=== PATIENT | female | born 1955 | race Caucasian/White ===

== ENCOUNTER 2016-07-24 18:11 | Inpatient (IN) | payer OTHER ==
[~2016-07-24] VITALS: Ht 162.6 cm; Wt 52.2 kg
--- NOTE | ~2016-07-24 | EKG ---
[address] [place] [address] ELECTROCARDIOGRAM REPORT Name: JEANNETTE DIAL Room #: 455-P ADM IN M.R.#: [id number] Admission: 07/24/16 Attend Phys: Gunnar Dc MD Discharge: Date of : 51 Report #: [id number] THIS REPORT FOR: //name// [facility] Test Date: 2016-07-24 Test Time: 21:50:47 Pat Name: JEANNETTE DIAL Department: Room: 455 P Gender: F Head Bookkeeper: Alee BAUTISTA : 1955 Requested By: Jannie Gan Order Number: [id number] MD: Devon Valente Measurements Intervals [place] Rate: 91 P: 76 [place]: 150 QRS: -41 QRSD: 93 T: 64 QT: 380 QTc: 468 Interpretive Statements Sinus rhythm Left axis deviation No previous ECG available for comparison Electronically Signed On 07-25-2016 7:41:53 CDT by Devon Valente [email or web address] <ELECTRONICALLY SIGNED> By: Devon Valente MD, [facility] 07/25/16 0741 2150 2150 Devon Valente MD, FACC /EPI
--- NOTE | ~2016-07-24 | HC ---
[facility] [place] [address] CONSULTATION Name: JEANNETTE DIAL Room #: 455-P [facility] IN M.R.#: [id number] Admission: 07/24/16 Attend Phys: Jaron Alegre DO Discharge: 07/28/16 Date of : 51 Report #: [id number] THIS REPORT FOR: //name// CC: Gunnar MCMANUS DATE OF SERVICE: 07/25/2016 REFERRING PROVIDER: Gunnar Dc M.D. REASON FOR CONSULTATION: COPD exacerbation. CHIEF COMPLAINT: Shortness of breath. HISTORY OF PRESENT ILLNESS: Our group was asked to see the patient in consultation while hospitalized at [facility], very pleasant 61-year-old woman with a past pulmonary history significant for ongoing tobacco use and COPD. She was previously followed by pulmonary at her home town in [place] until they moved, been on Advair twice daily and had previously been on an anticholinergic agent, but discontinued due to expense. Typically has some limitations in activity due to dyspnea. Unfortunately, has some ongoing tobacco use. Has been trying to move to the [place] area to be closer to family, recently traveled here, but yesterday had some increasing shortness of breath. No significant cough or sputum production. The patient has been using her nebulizer very frequently without relief. EMS was called twice yesterday. Initially, she improved with nebulizer treatment and felt she did not need to come to the hospital, but reactivated again to come to the emergency department for evaluation, was placed on BiPAP in the emergency department yesterday afternoon for her respiratory distress, has been off of BiPAP overnight and has noted an improvement just with aerosol treatments and systemic steroids. Again, no significant cough or sputum production or fever. ALLERGIES: None known. PAST MEDICAL HISTORY: 1. COPD, severity not quantified. Has not required chronic long-term oxygen therapy or systemic steroids, has been admitted on 2 other occasions, but not within the last year for similar problems. 2. Hypertension. OUTPATIENT MEDICATIONS: Include: 1. Advair 115/21 two puffs twice daily. 2. Diltiazem 360 mg daily. 3. Aspirin 81 mg daily. 4. DuoNeb q.i.d. p.r.n. 5. Albuterol inhaler p.r.n. [address] [address] CONSULTATION Name: JEANNETTE DIAL Room #: [address] [place] [address] IN M.R.#: [id number] Admission: 07/24/16 Attend Phys: Jaron Alegre DO Discharge: 07/28/16 Date of : 51 Report #: [id number] 6. [place] p.r.n. 7. Vitamin D 1000 units twice daily. 8. Prozac 40 mg daily. 9. Metoprolol 25 mg daily. 10. Adderall. SOCIAL HISTORY: The patient resides in [place], but is planning to move to this area to be with family, ongoing tobacco use of slightly less than 1 pack per day. No significant alcohol consumption. FAMILY HISTORY: Negative for any significant pulmonary disease. REVIEW OF SYSTEMS: CONSTITUTIONAL: Denies any recent fevers, chills or sweats, no change in weight or appetite. ENT: Denies any upper respiratory congestion, rhinorrhea, dysphagia or dizziness. CARDIOVASCULAR: No chest pains, palpitations or claudication symptoms. GASTROINTESTINAL: No nausea, vomiting, diarrhea, constipation or abdominal pain. GENITOURINARY: No urinary frequency, dysuria or hematuria. INTEGUMENT: Denies any new rash. MUSCULOSKELETAL: Some chronic osteoarthritis, some prior foot surgeries and some chronic left ankle edema. PHYSICAL EXAMINATION: VITAL SIGNS: Afebrile, pulse 80s, respiratory rate 18, blood pressure 144/96, oxygen saturation 94% on 4 liters. GENERAL: This is a pleasant middle-aged woman, does not appear in any distress, speaking in full sentences. ENT: Clear oropharynx. Mallampati 1 airway. NECK: Supple. Jugular venous pressure not elevated, no thyromegaly or lymphadenopathy noted. LUNGS: Diminished with a prolonged expiratory phase and low pitched expiratory wheezes noted throughout. CARDIOVASCULAR: Heart was regular. No murmurs appreciated. ABDOMEN: Soft, nontender, no masses, no hepatosplenomegaly. EXTREMITIES: Revealed some minor left ankle edema, 2+ pulses noted in the periphery. INTEGUMENT: Without significant rash. LABORATORY DATA: CBC was within normal limits. Chemistry profile within normal limits with exception of a mildly elevated glucose of 165, albumin of 3.3. Arterial blood gas in the emergency department on BiPAP ____ yesterday revealed pH 7.38, pCO2 of 43, pO2 of 204, bicarbonate 24. Chest x-ray revealed clear lungs. [address] [address] CONSULTATION Name: JEANNETTE DIAL Room #: 455-P [facility] IN M.R.#: [id number] Admission: 07/24/16 Attend Phys: Jaron Alegre DO Discharge: 07/28/16 Date of : 51 Report #: [id number] IMPRESSION: 1. Chronic obstructive pulmonary disease with acute exacerbation: Overall, the patient will likely need change in long-term controlling agents, the patient will most definitely benefit from longacting anticholinergic agent such as Spiriva, Incruse, Tudorza, may benefit from a cost-effective standpoint and switching to a longacting anticholinergic and beta-agonist combination as opposed to . We consider making these changes as an outpatient, continue with DuoNebs while inpatient, systemic steroids. 2. Ongoing tobacco use: Discussed with patient need for smoking cessation, has done well with nicotine replacement therapy particularly nicotine gum in the past as well and to try nicotine patches at this time, we will institute while hospitalized. 3. Hypertension: ____ as outlined above. If not improving, consider further evaluation for pulmonary embolism given her recent travel. Thank you for requesting our suggestions. <ELECTRONICALLY SIGNED> By: Zheng Bella MD 07/31/16 1453 0923 1739 Zheng Bella MD /nt
[2016-07-24 18:11] VITALS: BP 167/96
[2016-07-24 19:01] LABS: ABG SAMPLE TYPE ARTERIAL; BE(vivo) -0.9 mmol/L (-2 to +3); HCO3 24.4 mmol/L (22.0-26.0); LACTATE 1.06 mmol/L (0.5-2.0); O2(CT) 20.3 mL/dL (15.0-23.0); O2Hb 98.3 % (92.0-98.0); PCO2 42.6 mmHg (35.0-45.0); PO2 204.1 mmHg (80.0-100.0); Pressure Support 6 cm H20; STICK SITE R.RADIAL; pH 7.376 (7.360-7.450); sO2 99.4 % (92.0-98.0); tCO2 25.7 mmol/L (24.0-30.0)
[2016-07-24] MEDS ORDERED: VITAMIN D1000 UNI1 PO (19:26)
[2016-07-24] MEDS ORDERED: INCRUSE ELLI62.5 MCG IH (19:26)
[2016-07-24] MEDS ORDERED: TOPROL XL25 MG PO (19:27)
[2016-07-24] MEDS ORDERED: PROZAC20 MG PO (19:27)
[2016-07-24] MEDS ORDERED: TUMS PO (19:28)
[2016-07-24] MEDS ORDERED: ADVAIR HFA115 MCG/21 INH (19:28)
[2016-07-24] MEDS ORDERED: ADDERALL XR 2020 MG PO (19:28)
[2016-07-24] MEDS ORDERED: PROAIR HFA8.5 GM INH (19:29)
[2016-07-24] MEDS ORDERED: DUONEB 2.5-0.5 M3 ML INH (19:30)
[2016-07-24] MEDS ORDERED: CARDIZEM CD240 MG PO (19:30)
[2016-07-24] MEDS ORDERED: ASPIR 8181 MG PO (19:30)
[2016-07-24 20:03] LABS: HEMATOCRIT 40.9 % (37.0-47.0); HEMOGLOBIN 13.9 gm/dL (12.0-15.0); MCH 31.1 pg (26.0-34.0); MCV 91.5 fL (80.0-100.0); PLATELET COUNT 269 thou/uL (150-400); RBC 4.46 mil/uL (4.20-5.00); RDW 13.5 % (10.5-14.5); WBC 9.8 thou/uL (4.0-11.0)
[2016-07-24 20:05] LABS: MANUAL DIFF YES
[2016-07-24 20:15] LABS: CALCIUM 8.9 mg/dL (8.5-10.1); CREATININE 0.5 mg/dL (0.6-1.0); POTASSIUM 4.4 mmol/L (3.5-5.1)
[2016-07-24 20:24] LABS: ABSOLUTE NEUTROPHILS 8.2 thou/uL (1.4-8.2); TOTAL CELL COUNT 100
[2016-07-24 20:25] VITALS: BP 160/85
[2016-07-24 21:00] VITALS: BP 142/80
[2016-07-24] MEDS ORDERED: HYDROCODONE-ACE15 ML PO (21:49)
[2016-07-24] MEDS ORDERED: NORCO 10-325 T1 EAC1 PO (21:53)
[2016-07-25] VITALS: BP 153/91
[2016-07-25 04:00] VITALS: BP 145/88
[2016-07-25 05:37] LABS: HEMATOCRIT 41.7 % (37.0-47.0); HEMOGLOBIN 13.7 gm/dL (12.0-15.0); MCH 30.6 pg (26.0-34.0); MCHC 32.9 g/dL (28.0-37.0); MCV 92.9 fL (80.0-100.0); RBC 4.49 mil/uL (4.20-5.00); RDW 13.6 % (10.5-14.5); WBC 5.4 thou/uL (4.0-11.0)
[2016-07-25 06:02] LABS: ALBUMIN 3.3 g/dL (3.4-5.0); CALCIUM 8.4 mg/dL (8.5-10.1); CREATININE 0.5 mg/dL (0.6-1.0); POTASSIUM 4.4 mmol/L (3.5-5.1); TOTAL BILIRUBIN 0.5 mg/dL (<0.1-1.0)
[2016-07-25 07:16] VITALS: BP 144/96
[2016-07-25 08:44] LABS: URINE BILIRUBIN NEGATIVE (Negative); URINE BLOOD 1+ (Negative); URINE COLOR YELLOW; URINE GLUCOSE-RANDOM* NEGATIVE (Negative); URINE KETONES 1+ (Negative); URINE NITRITE POSITIVE (Negative); URINE PROTEIN (DIPSTICK) TRACE (Negative); URINE SPECIFIC GRAVITY >= 1.030 (1.003-1.035); URINE UROBILINOGEN 0.2 E.U./dl (0.2-1.0)
[2016-07-25 08:53] LABS: BACTERIA >30 Many /HPF (None Seen); SQUAMOUS 0-3 Few /LPF (0-3)
[2016-07-25 08:54] LABS: CASTS None Seen /LPF (None Seen); CRYSTALS None Seen /LPF (None Seen); URINE RBC None Seen /HPF (0-2); URINE WBC 0-5 Rare /HPF (0-5)
[2016-07-25 12:49] VITALS: BP 146/83
[2016-07-25 16:00] VITALS: BP 150/98
[2016-07-25 19:55] VITALS: BP 145/83
[2016-07-26 04:45] VITALS: BP 125/75
[2016-07-26 06:58] LABS: HEMATOCRIT 38.9 % (37.0-47.0); HEMOGLOBIN 12.9 gm/dL (12.0-15.0); MCH 30.6 pg (26.0-34.0); MCHC 33.2 g/dL (28.0-37.0); MCV 92.3 fL (80.0-100.0); PLATELET COUNT 247 thou/uL (150-400); RBC 4.21 mil/uL (4.20-5.00); RDW 13.4 % (10.5-14.5); WBC 13.9 thou/uL (4.0-11.0)
[2016-07-26 07:04] LABS: MANUAL DIFF YES
[2016-07-26 07:08] LABS: CALCIUM 8.3 mg/dL (8.5-10.1); CREATININE 0.4 mg/dL (0.6-1.0); POTASSIUM 4.2 mmol/L (3.5-5.1)
[2016-07-26 07:37] VITALS: BP 159/83
[2016-07-26 08:19] LABS: ABSOLUTE NEUTROPHILS 13.2 thou/uL (1.4-8.2); TOTAL CELL COUNT 100
[2016-07-26 11:01] VITALS: BP 147/86
[2016-07-26 15:04] VITALS: BP 139/82
[2016-07-26 19:27] VITALS: BP 151/83
[2016-07-27 03:35] VITALS: BP 155/84
[2016-07-27 08:15] VITALS: BP 169/99
[2016-07-27 11:10] VITALS: BP 170/98
[2016-07-27 16:50] VITALS: BP 142/78
[2016-07-27 19:33] VITALS: BP 155/89
[2016-07-28 04:09] VITALS: BP 158/86
[2016-07-28 07:42] VITALS: BP 156/92
[2016-07-28 11:17] VITALS: BP 168/82
[2016-07-28 15:06] VITALS: BP 146/79
[2016-07-28] MEDS ORDERED: DUONEB 2.5-0.5 M3 ML INH (15:38)
[2016-07-28] MEDS ORDERED: KEFLEX250 M1 PO (15:38)
[2016-07-28] MEDS ORDERED: PROAIR HFA8.5 GM INH (15:38)
[2016-07-28] MEDS ORDERED: NORCO 10-325 T1 EAC1 PO (15:39)
[2016-07-28] MEDS ORDERED: MEDROL DOSPAK21 TA1 PO (15:39)
[2016-07-28] MEDS ORDERED: ADVAIR HFA115 MCG/21 INH (15:39)
[2016-07-28 16:11] VITALS: BP 146/79
== END 2016-07-28 17:30 | disposition home or self-care (01) | DRG 189 ==
LOC: ER 18:11 → 4W 19:50 → EROBS 19:50 → 4W 20:48
PROVIDERS: Emergency Medicine; Family Medicine; Nurse Practitioner Family
DX: J96.01 Acute respiratory failure with hypoxia (principal); J44.1 Chronic obstructive pulmonary disease with (acute) exacerbation; J98.01 Acute bronchospasm; I10 Essential (primary) hypertension; F17.210 Nicotine dependence, cigarettes, uncomplicated; R00.0 Tachycardia, unspecified; F32.9 Major depressive disorder, single episode, unspecified; F41.9 Anxiety disorder, unspecified; Z71.6 Tobacco abuse counseling; Z79.899 Other long term (current) drug therapy; Z79.82 Long term (current) use of aspirin
CPT/HCPCS: 10045

== ENCOUNTER 2018-04-21 06:55 | Inpatient (IN) | payer OTHER ==
[~2018-04-21] VITALS: Ht 162.6 cm; Wt 66.0 kg
[2018-04-21] VITALS (12 sets, daily range): BP systolic 99–134; BP diastolic 39–80
[~2018-04-21 06:55] MED LIST: ADDERALL XR 2020 MG PO; ADVAIR HFA115 MCG/21 INH; ASPIR 8181 MG PO; CARDIZEM CD240 MG PO; DUONEB 2.5-0.5 M3 ML INH; HYDROCODONE-ACE15 ML PO; INCRUSE ELLI62.5 MCG IH; KEFLEX250 M1 PO; MEDROL DOSPAK21 TA1 PO; NORCO 10-325 T1 EAC1 PO; PROAIR HFA8.5 GM INH; PROZAC20 MG PO; TOPROL XL25 MG PO; TUMS PO; VITAMIN D1000 UNI1 PO
[2018-04-21 07:08] LABS: HEMATOCRIT 46.5 % (37.0-47.0); HEMOGLOBIN 15.8 gm/dL (12.0-15.0); MCH 29.5 pg (26.0-34.0); MCV 86.8 fL (80.0-100.0); PLATELET COUNT 229 thou/uL (150-400); RBC 5.36 mil/uL (4.20-5.00); RDW 14.2 % (10.5-14.5); WBC 3.1 thou/uL (4.0-11.0)
[2018-04-21 07:12] LABS: HCO3 20.9 mmol/L (22.0-26.0); PO2 58.4 mmHg (80.0-100.0); pH 7.358 (7.360-7.450); sO2 89.4 % (92.0-98.0)
[2018-04-21 07:33] LABS: CALCIUM 8.1 mg/dL (8.5-10.1); POTASSIUM 3.8 mmol/L (3.5-5.1)
[2018-04-21 07:38] LABS: ALBUMIN 2.5 g/dL (3.4-5.0); TOTAL BILIRUBIN 1.1 mg/dL (<0.1-1.0); TOTAL PROTEIN 6.7 g/dL (6.4-8.2); TROPONIN-I 0.08 ng/mL (<0.06)
--- NOTE | 2018-04-21 08:08 | NUR ---
DR. PASCUAL IN TO DISCUSS INTUBATION C PT/SON. PT AGREEABLE. 0811 ETOMIDATE 17MG GIVEN, RT BAGGING PT. 0813 SUCC. 60MG GIVEN. [address] HILL C 7.5 ETT 21@ GUM 0820 14FR OG PLACED 0825 NICHOLE CATH PLACED.
[2018-04-21 08:28] LABS: ABSOLUTE NEUTROPHILS 1.3 thou/uL (1.4-8.2); METAMYELOCYTES 7 %; MYELOCYTES 3 %
[2018-04-21 08:31] LABS: URINE BLOOD 3+ (Negative); URINE CLARITY CLEAR; URINE COLOR YELLOW; URINE GLUCOSE-RANDOM* NEGATIVE (Negative); URINE KETONES TRACE (Negative); URINE LEUKOCYTES-REFLEX NEGATIVE (Negative); URINE NITRITE-REFLEX NEGATIVE (Negative); URINE PROTEIN (DIPSTICK) 2+ (Negative); URINE SPECIFIC GRAVITY >= 1.030 (1.005-1.035); URINE UROBILINOGEN 0.2 E.U./dl (0.2-1.0)
[2018-04-21 08:39] LABS: ICTOTEST (BILI CONFIRMATORY) Negative (Negative); URINE BILIRUBIN NEGATIVE (Negative)
[2018-04-21 08:45] LABS: AMORPHOUS URATES Many /LPF (None Seen); BACTERIA-REFLEX None Seen /HPF (None Seen); FINE GRANULAR CASTS 0-3 Few /LPF (None Seen); SQUAMOUS 0-3 Few /LPF (0-3); URINE RBC 3-10 Few /HPF (0-2); URINE WBC-REFLEX 6-15 Few /HPF (0-5)
[2018-04-21 08:55] LABS: BE(vivo) -8.8 mmol/L (-2 to +3); HCO3 19.9 mmol/L (22.0-26.0); PCO2 54.1 mmHg (35.0-45.0); PO2 55.1 mmHg (80.0-100.0); pH 7.183 (7.360-7.450); sO2 80.5 % (92.0-98.0)
--- NOTE | 2018-04-21 11:01 | EKG ---
[address] [place] [address] ELECTROCARDIOGRAM REPORT Name: JEANNETTE DIAL Room #: 237-P ADM IN M.R.#: [id number] Admission: 04/21/18 Attend Phys: Александр Marshall MD Discharge: Date of : 51 Report #: [id number] THIS REPORT FOR: //name// [facility] ED Test Date: 2018-04-21 Test Time: 06:57:41 Pat Name: JEANNETTE DIAL Department: Room: 237 Gender: F Fixed Route Operator: SHIRLEY : 1955 Requested By: Александр [place] Order Number: [id number] MD: Shun Ayers Measurements Intervals [place] Rate: 148 P: 67 [place]: 129 QRS: -49 QRSD: 87 T: 44 QT: 293 QTc: 460 Interpretive Statements Sinus tachycardia Left anterior fascicular block Borderline low voltage, extremity leads Abnormal R-wave progression, early transition Compared to ECG 07/24/2016 21:50:47 Left anterior fascicular block now present Sinus rhythm no longer present Left-axis deviation no longer present Electronically Signed On 04-21-2018 11:01:27 CLOTH COLORER by Shun Ayers [email or web address] <ELECTRONICALLY SIGNED> By: Shun Ayers MD 04/21/18 1101 0657 0657 Shun Ayers MD /EPI
[2018-04-21 13:22] LABS: BE(vivo) -10.4 mmol/L (-2 to +3); HCO3 17.8 mmol/L (22.0-26.0); PCO2 47.9 mmHg (35.0-45.0); PO2 112.4 mmHg (80.0-100.0)
[2018-04-21 13:23] LABS: pH 7.187 (7.360-7.450)
[2018-04-21 14:52] LABS: APTT 41.8 Seconds (24.5-32.8); FIBRINOGEN 419.7 mg/dL (210-360); INR 1.4; PROTIME 14.6 Seconds (9.3-11.4)
[2018-04-21 14:54] LABS: CREATININE 1.5 mg/dL (0.6-1.0); POTASSIUM 3.6 mmol/L (3.5-5.1)
[2018-04-21 14:58] LABS: CALCIUM 5.8 mg/dL (8.5-10.1)
[2018-04-21 15:45] LABS: HCO3 17.5 mmol/L (22.0-26.0); PCO2 48.7 mmHg (35.0-45.0); PO2 114.2 mmHg (80.0-100.0)
[2018-04-21 15:46] LABS: pH 7.173 (7.360-7.450)
[2018-04-21 17:41] LABS: BE(vivo) -8.4 mmol/L (-2 to +3); HCO3 19.8 mmol/L (22.0-26.0); PCO2 51.1 mmHg (35.0-45.0); PO2 128.2 mmHg (80.0-100.0); sO2 97.9 % (92.0-98.0)
[2018-04-21 17:42] LABS: pH 7.207 (7.360-7.450)
[2018-04-21 17:43] LABS: HEMATOCRIT 42.8 % (37.0-47.0); HEMOGLOBIN 14.1 gm/dL (12.0-15.0); MCH 29.1 pg (26.0-34.0); MCHC 33.1 g/dL (28.0-37.0); MCV 88.1 fL (80.0-100.0); RBC 4.86 mil/uL (4.20-5.00); RDW 13.8 % (10.5-14.5); WBC 3.2 thou/uL (4.0-11.0)
[2018-04-21 17:46] LABS: PLATELET COUNT 138 thou/uL (150-400)
[2018-04-21 17:54] LABS: CALCIUM 6.1 mg/dL (8.5-10.1); CREATININE 1.4 mg/dL (0.6-1.0); POTASSIUM 3.5 mmol/L (3.5-5.1)
[2018-04-21 18:25] LABS: ABSOLUTE NEUTROPHILS 1.9 thou/uL (1.4-8.2); ATYPICAL LYMPHS 3 %; METAMYELOCYTES 11 %
[2018-04-21 18:27] LABS: TOXIC GRANULATION 2+
--- NOTE | 2018-04-21 19:18 | NUR ---
SUMMARY: PATIENT ADMITTED TO ICU ON THE VENT, LIGHTLY SEDATED. UNABLE TO OBTAIN BP INITIALLY AND PATIENT FEBRILE. STARTED ON LEVO AND VASO GTTS. A-LINE PLACED BY ANAESTHEOLOGIST AND OBTAINED BP AND ABLE TO WEAN DOWN PRESSORS. ADMISSION ASSESSMENT AND HISTORY DOCUMENTED. OGT TO LIS, CENTRAL LINE BY I.V RN. LABS AND CRITICAL VALUES CALLED TO DR. TEJEDA. DAYANARA WITH LOW URINE OUTPUT AND DR. TEJEDA AWARE. SON UPDATED BY MDs AND RN THROUGHOUT THE DAY. REPORTED OFF TO HERVE MONTAÑOSHELL GRADERPATTERN CLERK.
--- NOTE | 2018-04-21 20:01 | NUR ---
VASCULAR ACCESS CONSULTED THIS AM FOR A CL FOR THIS PT WHO WAS INTUBATED IN THE ER AND STRAIGHT TO ICU, NOT MUCH MEDICAL HX OR LABS. DR TEJEDA WANTED CL MEDICALLY NECESSARY, LINE PLACED PER HOSPITAL P&P, SEE PROCEDURE NOTE.
[2018-04-21 20:09] LABS: IgA 292 mg/dL (87-352); IgG 829 mg/dL (700-1600); IgM 61 mg/dL (26-217)
[2018-04-21 20:55] LABS: BE(vivo) -10.7 mmol/L (-2 to +3); HCO3 18.4 mmol/L (22.0-26.0); PCO2 53.4 mmHg (35.0-45.0); PO2 86.1 mmHg (80.0-100.0); sO2 93.6 % (92.0-98.0)
[2018-04-21 20:56] LABS: pH 7.156 (7.360-7.450)
[2018-04-21 21:12] LABS: CALCIUM 6.1 mg/dL (8.5-10.1); CREATININE 1.4 mg/dL (0.6-1.0)
[2018-04-22 05:03] LABS: BE(vivo) -9.6 mmol/L (-2 to +3); HCO3 18.5 mmol/L (22.0-26.0); PO2 93.3 mmHg (80.0-100.0); sO2 95.4 % (92.0-98.0)
[2018-04-22 05:04] LABS: pH 7.203 (7.360-7.450)
[2018-04-22 05:28] LABS: CREATININE 1.9 mg/dL (0.6-1.0); POTASSIUM 4.3 mmol/L (3.5-5.1)
[2018-04-22 05:29] LABS: CALCIUM 5.9 mg/dL (8.5-10.1)
[2018-04-22 05:30] LABS: HEMATOCRIT 43.9 % (37.0-47.0); HEMOGLOBIN 14.2 gm/dL (12.0-15.0); MCH 28.5 pg (26.0-34.0); MCHC 32.3 g/dL (28.0-37.0); MCV 88.1 fL (80.0-100.0); PLATELET COUNT 154 thou/uL (150-400); RBC 4.99 mil/uL (4.20-5.00)
--- NOTE | 2018-04-22 05:47 | NUR ---
END OF SHIFT SUMMARY: Pt not progressing toward goals. Remains sinus tachycardia on monitor with PAC's and PVC's, rate 129-135. Levophed titrated up to 12 mcg/min from 5 mcg/min and Vasopressin restarted at 0.04 units/min to keep MAP >60. O2 sat 92-96% on 100% FiO2, Tv 500, AC 24, and peep 7. Pt continues to breathe over vent at 30-35 bpm. Suctioning scant amounts of thick brown from ET tube. Mucous membranes extremely dry despite oral care. Urine output has gradually dropped throughout shift, only 200 cc out for [address] Nazario kept up to date on critical labs and pt condition throughout shift. Pt remains sedated on Propofol for vent management but breathing still appears labored despite moderate sedation.
[2018-04-22 06:20] LABS: PLATELET ESTIMATE NORMAL; POLYCHROMASIA OCCASIONAL
--- NOTE | 2018-04-22 09:46 | HC ---
[facility] [place] [address] [place] [address] CONSULTATION Name: JEANNETTE DIAL Room #: 237- ADM IN M.R.#: [id number] Admission: 04/21/18 Attend Phys: Александр Marshall MD Discharge: Date of : 51 Report #: [id number] THIS REPORT FOR: //name// CC: SUKUMAR physician/PCP Александр MCMANUS DATE OF SERVICE: 04/21/2018 REASON FOR CONSULTATION: I was asked to evaluate concerning septic shock and pneumonia. HISTORY OF PRESENT ILLNESS: The patient was a 63-year-old underlying COPD who presents with acute onset of chest tightness and shortness of breath. History was gleaned from the chart and discussion with attending and pts son. The patient was currently in the Intensive Care Unit having her lines placed. Patient lives with her son and grandson, who had uri symptoms last week. Day before admit she spent in bed feeling poorly. No documented fever or chills at that time. Minimal cough. No rhinorrhea or pharyngitis. She has had no travel or recent antibiotic use. Awoke this morning with chest tightness, cough and acute shortness of breath. No noted chills or sweats. She did have a fever when she got to the Emergency Room of 103.4 degrees and was tachycardic with blood pressure down to 95/61. She has been intubated now on 60% FiO2 with an ABG showing pO2 of 55, pCO2 of 54, pH 7.18 with a lactate initially 7.2, now 4.0. Moderate amount of tracheal secretions were obtained. Blood cultures were obtained. She has been given IV fluids and now is on Levophed drip. She had blood-tinged sputum. Initially given vancomycin and Zosyn in addition to doxycycline and ceftriaxone. She has had no known travel. No recent antibiotic exposure. Does have COPD that has been treated with Advair. She is a smoker of cigarettes. No known immunodeficiency. ALLERGIES: None. MEDICATIONS: As noted on MAR with the antibiotics as noted above. She was also given Solu-Medrol. PAST MEDICAL HISTORY: COPD. She is a smoker of cigarettes. Had appendectomy and foot surgery, osteoarthritis and osteoporosis. FAMILY HISTORY: Noncontributory. [facility] [address] [place] [address] CONSULTATION Name: JEANNETTE DIAL Room #: 237-P ADM IN M.R.#: [id number] Admission: 04/21/18 Attend Phys: Александр Marshall MD Discharge: Date of : 51 Report #: [id number] SOCIAL HISTORY: Past smoker, no significant alcohol intake. REVIEW OF SYSTEMS: The patient was unable to give any further details for a 10-point review of systems. PHYSICAL EXAMINATION: Obtunded, sedated on vent 100% fi02. lines placed in right ij. unable to place right fem line. mottled. no adenopathy. eyes no conjuctivitis or icterus. mouth no lesions. neck supple. lungs course left post chest. heart reg tach. abd soft with no mass or hsm. ext no edema, does have cyanosis. moves all extremities. unable to assess cn's or mood. pupils reactive to light. LABORATORY DATA: ABGs as noted above. Urinalysis, 2+ protein. Chest x-ray, extensive left lower lobe infiltrate. Hemoglobin 15.8, platelet count 229,000, WBC 3.1 with 32% segs, 11% bands, 7% metamyelocytes, 3% myelocytes, 33% lymphs. Sodium 129, potassium 3.8, bicarbonate 23, creatinine 2, AST 73, bilirubin 1.1. BNP 42,000. Influenza antigen negative. IMPRESSION: A 63-year-old with underlying chronic obstructive pulmonary disease, presents with community-acquired pneumonia, left lung associated with multiorgan system failure. She has respiratory failure. Hypotension has improved with fluids and vasopressors. 1. Acute renal failure. 2. Underlying chronic obstructive pulmonary disease. 3. Acute kidney injury. RECOMMENDATIONS: We will continue with broad antibiotic coverage for both typical and atypical organisms. Cultures, sputum and blood. Obtain urine antigens, obtain viral respiratory panel and check for immunodeficiency. Continue with sepsis protocol and full ICU support. I have discussed with Critical Care team, attending and patient's son. <ELECTRONICALLY SIGNED> By: Efraín Bowers MD 04/22/18 0946 1111 13 Efraín Bowers MD /nt
--- NOTE | 2018-04-22 09:59 | 2DMMODE ---
[facility] [address] [place] [address] 2 D/M-MODE ECHOCARDIOGRAM Name: YOJANAJEANNETTE Room #: 237-P ADM IN .R.#: [id number] Admission: 04/21/18 Attend Phys: Александр Marshall, Discharge: Date of : 51 Date of Service: 04/22/18 0959 Report #: [id number] THIS REPORT FOR: //name// APPROVED REPORT Study performed: 04/22/2018 09:01:16 EXAM: Comprehensive 2D, Doppler, and color-flow Echocardiogram Patient Location: Bedside Room #: Counts include 234 beds at the [facility] Status: routine BSA: 1.71 HR: 138 bpm BP: 87/50 mmHg Rhythm: Tachycardia Other Information Study Quality: Adequate Technically limited study due to inability to position patient. Risk Factors: Cardiac Risk Factors: Smoking Indications COPD Sepsis Dyspnea Pt. is intubated Pneumonia 2D Dimensions IVSd: 9.44 (7-11mm) LVOT Diam: 19.00 (18-24mm) LVDd: 33.01 mm PWd: 10.32 (7-11mm) Ascending Ao: 27.51 (22-36mm) LVDs: 19.36 (25-40mm) Aortic Root: 28.71 mm LV Single Plane 4CH: 71.21 % LV Single Plane 2CH: 63.26 % Biplane EF: 67.6 % Aortic Valve AoV Peak Favian.: 1.34 m/s AO Peak Gr.: 7.18 mmHg LVOT Max P.24 mmHg LVOT Max V: 1.03 m/s [facility] [address] [place] [address] 2 D/M-MODE ECHOCARDIOGRAM Name: YOJANAJEANNETTE NEWTON Room #: 237-P [facility]#: [id number] Admission: 04/21/18 Attend Phys: Александр Marshall, Discharge: Date of : 51 Date of Service: 04/22/18 0959 Report #: [id number] SAMANTHA Vmax: 2.19 cm2 Mitral Valve E/A Ratio: 0.7 MV Decel. Time: 133.26 ms MV E Max Favian.: 0.56 m/s MV A Favian.: 0.80 m/s MV PHT: 38.65 ms TDI E/Lateral E': 8.00 E/Medial E': 8.00 Medial E' Favian.: 0.07 m/s Lateral E' Favian.: 0.07 m/s Pulmonary Valve PV Peak Favian.: 1.01 m/s PV Peak Gr.: 4.06 mmHg Tricuspid Valve TR Peak Favian.: 2.94 m/s TR Peak Gr.: 34.61 mmHg Left Ventricle The left ventricle is normal size. There is normal LV segmental wall motion. There is normal left ventricular wall thickness. Left ventricular systolic function is hyperdynamic. LVEF is 65-70%. Mild diastolic dysfunction is present (impaired relaxation pattern). Right Ventricle Right ventricle is dilated. Right ventricle is hypokinetic. Atria The left atrium size is normal. The right atrium size is normal. Aortic Valve The aortic valve is normal in structure. No aortic regurgitation is present. There is no aortic valvular stenosis. Mitral Valve The mitral valve is normal in structure. There is no mitral valve regurgitation noted. No evidence of mitral valve stenosis. Tricuspid Valve The tricuspid valve is normal in structure. Trace to mild tricuspid [facility] [place] [address] 2 D/M-MODE ECHOCARDIOGRAM Name: JEANNETTE DIAL Room #: 237-P ADM IN M.R.#: [id number] Admission: 04/21/18 Attend Phys: Александр Marshall, Discharge: Date of : 51 Date of Service: 04/22/18 0959 Report #: [id number] regurgitation. TR jet measures 35mmHg. Pulmonic Valve The pulmonary valve is normal in structure. There is no pulmonic valvular regurgitation. Great Vessels The aortic root is normal in size. IVC is normal in size and collapses >50% with inspiration. Pericardium There is no pericardial effusion. <Conclusion> Left ventricular systolic function is hyperdynamic. There is normal LV segmental wall motion. LVEF is 65-70%. Mild diastolic dysfunction Right ventricle is dilated and severely hypokinetic The aortic valve is normal in structure. No aortic regurgitation or stenosis The mitral valve is normal in structure. No mitral valve regurgitation. Trace to mild tricuspid regurgitation. Pulmonary artery pressure of 35mmHg. There is no pericardial effusion. <ELECTRONICALLY SIGNED> By: Devon Valente MD, FACC 04/22/18958 8 8 Devon Valente MD, FACC /INF
[2018-04-22 11:38] LABS: CALCIUM 6.2 mg/dL (8.5-10.1); CREATININE 2.4 mg/dL (0.6-1.0); POTASSIUM 4.2 mmol/L (3.5-5.1)
[2018-04-22 12:29] LABS: BE(vivo) -11.4 mmol/L (-2 to +3); HCO3 18.1 mmol/L (22.0-26.0); PCO2 55.3 mmHg (35.0-45.0); PO2 75.7 mmHg (80.0-100.0); pH 7.132 (7.360-7.450); sO2 90.3 % (92.0-98.0)
--- NOTE | 2018-04-22 16:30 | NUR ---
pt was extubated at 1650 MTN was notfifed, medications were administered for comfort, comfort care orders were provided, pt is currently resting comfortly with son at bed side.
[2018-04-22 17:09] LABS: GLOBULIN TOTAL 2.2 g/dL (2.2-3.9); M-SPIKE Not Observed g/dL (Not Observed)
--- NOTE | 2018-04-22 17:13 | NUR ---
CONTACTED BY NURSING SAYING SON IS WANTING TO TRANSPORT PTS BODY TO [place] FOR BURIAL THERE. S/W PT AND INSTRUCTED HIM TO WORK THRU HIS HOME IN AND THEY WILL THEN WORK WITH US OR A LOCAL HOME HERE TO PREPARE BOY FOR TRANSPORT AND OBTAIN NEEDED PERMITS AND OTHER DETAILS NEEDED TO BE ABLE TO DO THIS LEGALLY. SON SAYS PT HAS A BURAIL PLOT IN [place].
--- NOTE | 2018-04-22 17:38 | HC ---
[facility] [place] [address] [place] [address] CONSULTATION Name: JEANNETTE DIAL Room #: [facility] IN M.R.#: [id number] Admission: 04/21/18 Attend Phys: Александр Marshall MD Discharge: Date of : 51 Report #: [id number] THIS REPORT FOR: //name// CC: [facility] physician/PCP Александр MCMANUS PULMONARY CONSULTATION REFERRING PHYSICIAN: Александр Marshall M.D. REASON FOR REFERRAL: Severe pneumonia, respiratory failure. HISTORY OF PRESENT ILLNESS: The patient is a 63-year-old white female who presents to the Emergency Room with acute respiratory distress. Chest x-ray shows dense left-sided infiltrates. The patient was intubated in the ER. A Pulmonary consultation was requested. According to the history, the patient had been well until this morning when she awoke with acute respiratory distress, dyspneic. Currently, she is intubated, hypotensive. Otherwise, history is limited as the patient is intubated. Family members are not around. PAST MEDICAL HISTORY: Notable for COPD, active tobacco use, osteoarthritis and osteoporosis. PAST SURGICAL HISTORY: Appendectomy. ALLERGIES: None to medications. HOME MEDICATIONS: Include Prozac, Toprol-XL, Adderall-XL, Cardizem, aspirin, a recent course of Medrol Dosepak, Advair 100/50 mcg 2 puffs twice a day, [place], albuterol and DuoNebs. FAMILY HISTORY: Noncontributory. SOCIAL HISTORY: The patient actively smokes, about a pack a day for most of her life. No alcohol history. REVIEW OF SYSTEMS: Deferred as the patient is intubated. PHYSICAL EXAMINATION: GENERAL: On exam, she appears tachypneic, somewhat restless, currently on sedation. [facility] [address] [place] [address] CONSULTATION Name: JEANNETTE DIAL Room #: 237-P [facility] IN .R.#: [id number] Admission: 04/21/18 Attend Phys: Александр Marshall MD Discharge: Date of : 51 Report #: [id number] VITAL SIGNS: Temperature is 103.4 degrees Fahrenheit, pulse is 110, respiratory rate is 32, blood pressure is 130/72 mmHg and saturation is 99%. HEENT: Normocephalic, atraumatic. NECK: Supple, without lymphadenopathy or thyromegaly. She is orally intubated. CHEST: Breath sounds are coarse bilaterally. CARDIOVASCULAR: Heart sounds are distant. No obvious murmurs or gallops. Pulses are 2+/4+ bilaterally. ABDOMEN: Soft, nontender. No organomegaly or masses felt. GENITOURINARY: Deferred. RECTAL: Deferred. EXTREMITIES: Notable for moderate cyanosis involving the extremities, particularly the lower extremities. Otherwise, no cyanosis or clubbing. LABORATORY DATA: Chest x-ray again shows a dense left lower lobe infiltrate with some evidence of pleural effusion, right lung field appears to be clear. Central line is in the appropriate position, in the proximal part of the right atrium. ET tube is approximately 2.5 cm below the kashmir. NG tube is in the appropriate gastric position. Lactic acid is 7.2. Influenza A and B swab is negative. Sodium 133, potassium 3.6, chloride 101, CO2 is 18, BUN is 29 and creatinine is 1.5. Liver enzymes are mildly abnormal. WBC is 3100, hemoglobin 15.8 and platelets are normal. There are 11% bandemia. Arterial blood gas on admission revealed pH of 7.35, pCO2 of 38 and pO2 of 58 on FiO2 of 50%. Most recent arterial blood gas revealed pH of 7.18, pCO2 of 47 and pO2 of 112 on the FiO2 100%. Calcium 5.8. IMPRESSION: 1. Acute respiratory distress in a 63-year-old white female. Chest x-ray shows dense left-sided infiltrates. Symptoms started acutely. Suspect community-acquired pneumonia, Streptococcus or Staphylococcus is likely. 2. Acute hypoxic respiratory failure due to acute respiratory distress in a 63-year-old white female. 3. History of chronic kidney disease, acute kidney injury, now with metabolic acidosis along with mixed respiratory acidosis. 4. Severe sepsis, septic shock with multisystem organ failure, as mentioned above. 5. Mild disseminated intravascular coagulation. 6. Severe protein-calorie malnutrition with an albumin of 2.4. 7. History of chronic obstructive pulmonary disease, active tobacco use, severity unknown. 8. History of depression and anxiety. 9. Hypertension. RECOMMENDATIONS: I agree with broad spectrum antibiotics, initiate sepsis protocol, vasopressors, continue mechanical ventilation. We will wean FiO2 to 90%. We will need to monitor urine output closely given the history of chronic kidney disease. We will start IV bicarbonate. We will try to maintain urine [address] [address] CONSULTATION Name: JEANNETTE DIAL Room #: 237-P [facility] IN M.R.#: [id number] Admission: 04/21/18 Attend Phys: Александр Marshall MD Discharge: Date of : 51 Report #: [id number] output greater than 20 mL an hour if possible. DVT and GI prophylaxis will be addressed. Chest x-ray already shows suggestion of pleural effusion on the left. She will need a diagnostic thoracentesis to rule out complicated pleural effusion. Thank you for this consultation. <ELECTRONICALLY SIGNED> By: Jose Nazario MD 04/22/18 1738 1529 2209 Jose Nazario MD /nt
[2018-04-22 19:11] LABS: HIV ANTIBODY Non Reactive (Non Reactive)
--- NOTE | 2018-04-26 09:21 | HC ---
[facility] [place] [address] CONSULTATION Name: JEANNETTE DIAL Room #: [facility] IN M.R.#: [id number] Admission: 04/21/18 Attend Phys: Александр Marshall MD Discharge: 04/22/18 Date of : 51 Report #: [id number] THIS REPORT FOR: //name// CC: SUKUMAR physician/PCP Александр SANTOYOHEN [place] DATE OF SERVICE: 04/22/2018 NEPHROLOGY CONSULTATION REASON FOR CONSULTATION: Septic shock with acute renal failure. HISTORY OF PRESENT ILLNESS: This 63-year-old patient was admitted yesterday with worsening pneumonia, developed septic shock with severe hypotension. She has a left-sided effusion and pneumonia, is intubated on the ventilator, on pressors with decreased urine output and elevated creatinine. PAST MEDICAL HISTORY: She has bad COPD. She is a smoker. She has a history of hypertension, osteoarthritis, previous appendectomy. HOME MEDICATIONS: Listed include vitamin D, Prozac 40 mg daily, Toprol-XL 25 mg daily, Adderall XR 20 mg daily, diltiazem 360 mg daily, aspirin 81 mg daily. REVIEW OF SYSTEMS: Cannot be taken as she is completely comatose on the ventilator in ICU on pressors. SOCIAL HISTORY: According to the old chart, mentions her smoking. FAMILY HISTORY: Unobtainable. PHYSICAL EXAMINATION: GENERAL: This is an extremely ill-appearing patient, in the ICU on the ventilator, 100% FiO2 and PEEP with inadequate ventilation. Pulse is 138 and blood pressure 89/51 on Levophed and vasopressin. SKELETAL: Shows her to be mottled throughout. SKELETAL: Shows her to be thin, somewhat cachectic. HEENT: Extraocular movements cannot be tested. Pupils do react. ET tube in place. CHEST: Shows coarse breath sounds with rhonchi. HEART: Extremely tachycardic. ABDOMEN: Quiet. EXTREMITIES: Mottled, but not edematous and they are cool. LABORATORY DATA: Creatinine is 1.9, relatively stable since the time of admission. Sodium 135, potassium 4.3, chloride 102, bicarbonate 19, calcium [facility] [address] [place] [address] CONSULTATION Name: JEANNETTE DIAL Room #: 237-P [facility] IN M.R.#: [id number] Admission: 04/21/18 Attend Phys: Александр Marshall MD Discharge: 04/22/18 Date of : 51 Report #: [id number] down to 5.9, albumin was 2.5, certainly has dropped since then. ASSESSMENT AND PLAN: 1. Septic shock. She has septic shock due to pneumonia and chronic obstructive pulmonary disease. We are having tremendous amount of time ventilating this patient and her prognosis is extremely poor. 2. Acute kidney injury related to her septic shock, decreased blood pressure, decreased renal perfusion. I do not know of any prior renal disease and previous creatinines have been okay. 3. Chronic obstructive pulmonary disease with cigarette smoking. 4. History of hypertension. 5. On chronic amphetamines. <ELECTRONICALLY SIGNED> By: Ej Cuevas MD 04/26/18 0921 [id number] Ej Cuevas MD /nt
[2018-04-26 11:10] LABS: ADENOVIRUS Negative (Negative); INFLUENZA A Negative (Negative); INFLUENZA B Negative (Negative); METAPNEUMOVIRUS Negative (Negative); PARAINFLUENZA 1 Negative (Negative); PARAINFLUENZA 2 Negative (Negative); PARAINFLUENZA 3 Negative (Negative); RSV A Negative (Negative); RSV B Negative (Negative)
[2018-04-27 23:05] LABS: RHINOVIRUS Negative (Negative)
== END 2018-04-22 16:39 | DRG 871 ==
LOC: ER 06:55 → EROBS 08:19 → ICU 08:19
PROVIDERS: Emergency Medicine; Internal Medicine Pulmonary Disease; Specialist; ADMIT Family Medicine
PROC: 02HV33Z Insertion of Infusion Device into Superior Vena Cava, Percutaneous Approach (ICD-10-PCS; principal; 2018-04-21)
PROC: 0BH17EZ Insertion of Endotracheal Airway into Trachea, Via Natural or Artificial Opening (ICD-10-PCS; principal; 2018-04-21)
PROC: 5A1935Z Respiratory Ventilation, Less than 24 Consecutive Hours (ICD-10-PCS; principal; 2018-04-21)
PROC: B548ZZA Ultrasonography of Superior Vena Cava, Guidance (ICD-10-PCS; principal; 2018-04-21)
DX: A41.9 Sepsis, unspecified organism (principal); J18.9 Pneumonia, unspecified organism; J96.01 Acute respiratory failure with hypoxia; D65 Disseminated intravascular coagulation [defibrination syndrome]; E43 Unspecified severe protein-calorie malnutrition; R65.21 Severe sepsis with septic shock; N17.9 Acute kidney failure, unspecified; F15.20 Other stimulant dependence, uncomplicated; J44.0 Chronic obstructive pulmonary disease with (acute) lower respiratory infection; M19.90 Unspecified osteoarthritis, unspecified site; M81.0 Age-related osteoporosis without current pathological fracture; I95.9 Hypotension, unspecified; N18.9 Chronic kidney disease, unspecified; Z51.5 Encounter for palliative care; F32.9 Major depressive disorder, single episode, unspecified; F41.9 Anxiety disorder, unspecified; Z68.25 Body mass index [BMI] 25.0-25.9, adult; Z90.49 Acquired absence of other specified parts of digestive tract; Z87.891 Personal history of nicotine dependence
CPT/HCPCS: 10078; 10203